=== PATIENT | female | born 1965 | race Caucasian/White ===

== ENCOUNTER 2022-02-03 08:23 | Observation (INO) ==
[2022-02-03 08:40] VITALS: BMI 20.7
[2022-02-03] MEDS ORDERED: CATAPRES PO ONE (08:58)
--- NOTE | 2022-02-03 09:10 | ED.PDOC ---
General ED Provider: Dr. BRIA RODRIGUEZ Chief Complaint: Nausea/Vomiting Stated Complaint: Nausea/Vomiting and abdominal pain. Onset for past several days. Went to ER at [facility] in October and was dx with Ulcerative Colitis/ Time Seen by Provider: 02/03/22 08:45 Mode of Arrival: Walk-In Information Source: Patient Exam Limitations: No limitations Primary Care Provider: RE OVIEDO Nursing and Triage Documentation Reviewed and Agree: Yes Does patient meet sepsis criteria?: No System Inflammatory Response Syndrome: Not Applicable Sepsis Protocol: For patient's 13 years and over: Temp is 96.8 and below OR 101 and greater Pulse >90 BPM Resp >20/minute Acutely Altered Mental Status Are patient's symptoms suggestive of a new infection, such as: -Pneumonia -Skin, Soft Tissue -Endocarditis -UTI -Bone, Joint Infection -Implantable Device -Acute Abdominal Infection -Wound Infection -Meningitis -Blood Stream Catheter Infection -Unknown GI Complaint Exam Vomiting/Diarrhea Complaint/Exam Onset/Duration: 2-3 days Episodes of Vomiting over last 24 Hours: 3 Episodes of Diarrhea Over Last 24 Hours: 2 Initial Severity: Moderate Current Severity: Mild Character of Vomiting: Reports Bilious Character of Diarrhea: Reports Watery and Mucoid Aggravating: Reports Food and Liquids Alleviating: Reports None Associated Signs and Symptoms: Reports Light-headedness and Abdominal pain Related History: Reports Similar episode Menses: Regular (PREV JOHAN) Non-GI Risk Factors: Reports None Surgical Obstruction Risk Factors: Reports Colicky abdominal pain Related Surgical History: Reports None Abdominal Findings: Absent Pulsatile mass, Abdominal distention, Unequal femoral pulses, Rebound tenderness, Peritoneal signs, [place] tender or CVA Tenderness Review of Systems Review Of Systems Constitutional: Reports Weakness Eyes: Reports No symptoms Ears, Nose, Mouth, Throat: Reports No symptoms Respiratory: Reports No symptoms and Cough Cardiac: Reports No symptoms GI: Reports Abdominal pain, Diarrhea, Nausea, Poor appetite and Poor fluid intake : Reports No symptoms Musculoskeletal: Reports No symptoms Skin: Reports No symptoms Neurological: Reports Anxiety Endocrine: Reports No symptoms All Other Systems: Reviewed and Negative Physical Exam Physical Exam Appearance: Reports Ill-appearing Ill-appearing: Mild Pain Distress: Mild Eyes: Reports JUDIE, EOMI and Conjunctiva clear ENT: Reports Ears normal, Nose normal and Oropharynx normal Neck: Nonsupple Respiratory: Reports Airway patent Cardiovascular: Reports RRR, Pulses normal, No rub and No murmur GI/: Reports Soft, Tender and Bowel sounds hyperactive; Denies Mass Musculoskeletal: Reports Normal strength Skin: Reports Warm Neurological: Reports Sensation intact, Motor intact and Reflexes intact Psychiatric: Reports Affect appropriate, Mood appropriate and Anxious Interpretation Radiology Interpretation Exam Interpreted: CT Scan (No acute abnormality in the abdomen or pelvis. Severe degenerative disc disease of L1-L2.) Critical Care Note Critical Care Note Total Critical Care Time (mins): 60 Course Course Hematology/Chemistry: 02/03/22 09:13 02/03/22 09:13 Orders, Labs, Meds: Lab Review 02/03/22 02/03/22 02/03/22 09:13 09:13 09:13 WBC 13.65 H RBC 5.12 Hgb 15.8 Hct 46.5 MCV 90.8 MCH 30.9 MCHC 34.0 RDW Coeff of [place]sten 12.9 Plt Count 377 Immature Gran % (Auto) 0.2 Neut % (Auto) 74.4 Lymph % (Auto) 19.4 [place] % (Auto) 5.8 Eos % (Auto) 0.0 Baso % (Auto) 0.2 Neut # (Auto) 10.2 H Lymph # (Auto) 2.7 [place] # (Auto) 0.8 Eos # (Auto) 0.0 Baso # (Auto) 0.0 Immature Gran # (Auto) 0.0 Sodium 132.7 L Potassium 3.43 L Chloride 93.9 L Carbon Dioxide 31.0 H Anion Gap 11.23 BUN 20.9 H Creatinine 0.89 Estimated GFR (MDRD) 66.00 BUN/Creatinine Ratio 23.48 Glucose 126.6 H Lactic Acid Calcium 9.46 Total Bilirubin 0.64 AST 30.7 ALT 17.9 Alkaline Phosphatase 122.7 Total Protein 8.50 H Albumin 5.03 H Globulin 3.47 Albumin/Globulin Ratio 1.44 Amylase 67.6 Lipase 38.9 Procalcitonin < 0.05 Urine Color Urine Clarity Urine pH Ur Specific [place] Urine Protein Urine Glucose (UA) Urine Ketones Urine Blood Urine Nitrite Urine Bilirubin Urine Urobilinogen Ur Leukocyte Esterase Urine Microscopic RBC Ur Squamous Epith Cells Urine Mucus Urine Opiates Screen Ur Oxycodone Screen Urine Methadone Screen Ur Propoxyphene Screen Ur Barbiturates Screen U Tricyclic Antidepress Ur Phencyclidine Scrn Ur Amphetamine Screen U Methamphetamines Scrn U Benzodiazepines Scrn Urine Cocaine Screen U Cannabinoids Screen 02/03/22 02/03/22 02/03/22 09:13 11:55 11:55 WBC RBC Hgb Hct MCV MCH MCHC RDW Coeff of [place] Plt Count Immature Gran % (Auto) Neut % (Auto) Lymph % (Auto) [place] % (Auto) Eos % (Auto) Baso % (Auto) Neut # (Auto) Lymph # (Auto) [place] # (Auto) Eos # (Auto) Baso # (Auto) Immature Gran # (Auto) Sodium Potassium Chloride Carbon Dioxide Anion Gap BUN Creatinine Estimated GFR (MDRD) BUN/Creatinine Ratio Glucose Lactic Acid 1.33 Calcium Total Bilirubin AST ALT Alkaline Phosphatase Total Protein Albumin Globulin Albumin/Globulin Ratio Amylase Lipase Procalcitonin Urine Color Dark Urine Clarity Slightly Urine pH 7.0 Ur Specific [place] >=1.030 Urine Protein 1+ H Urine Glucose (UA) Negative Urine Ketones 1+ H Urine Blood 2+ H Urine Nitrite Negative Urine Bilirubin 1+ H Urine Urobilinogen 0.2 Ur Leukocyte Esterase Negative Urine Microscopic RBC 10-20 Ur Squamous Epith Cells 5-10 Urine Mucus 3+ Urine Opiates Screen Negative Ur Oxycodone Screen Positive H Urine Methadone Screen Negative Ur Propoxyphene Screen Negative Ur Barbiturates Screen Negative U Tricyclic Antidepress Negative Ur Phencyclidine Scrn Negative Ur Amphetamine Screen Negative U Methamphetamines Scrn Negative U Benzodiazepines Scrn Negative Urine Cocaine Screen Negative U Cannabinoids Screen Positive H Orders Category Date Time Status ADMIT OBSERVATION [PLACE PATIENT OBSERVATION] .TO ADMISSION 02/03/22 13:43 Ordered MEDSURG (MONITORED BED) ADMIT PATIENT INPATIENT .TO MEDSURG (MONITORED BED) ADMISSION 02/03/22 13:44 Ordered ADMIT PATIENT SWING .TO MEDSURG (MONITORED BED) ADMISSION 02/03/22 13:44 Ordered ACTIVITY .BR with BRP CARE 02/03/22 13:45 Ordered BLOOD GLUCOSE MONITORING (MED/SURG) ACCUCHECK Q6H CARE 02/03/22 13:46 Ordered INTAKE & OUTPUT Q8HR CARE 02/03/22 13:44 Ordered TELEMETRY MONITORING TELE CARE 02/03/22 13:43 Ordered VITAL SIGNS Q4HR CARE 02/03/22 13:45 Ordered NOTHING BY MOUTH DIETARY 02/03/22 Lunch Ordered IV [ED IV/MEDIPORT/POWERPORT] .ONCE EMERGENCY 02/03/22 09:12 Active AMYLASE Stat LAB 02/03/22 09:13 Completed AMYLASE Stat LAB 02/03/22 13:44 Ordered CBC W/ AUTO DIFF DAILY@0600 LAB 02/04/22 06:00 Ordered CBC W/ AUTO DIFF DAILY@0600 LAB 02/05/22 06:00 Ordered CBC W/ AUTO DIFF Stat LAB 02/03/22 09:13 Completed CBC W/ AUTO DIFF Stat LAB 02/03/22 13:44 Ordered CMP [COMPREHENSIVE METABOLIC PANEL] Stat LAB 02/03/22 09:13 Completed COMPREHENSIVE METABOLIC PANEL DAILY@0600 LAB 02/04/22 06:00 Ordered COMPREHENSIVE METABOLIC PANEL DAILY@0600 LAB 02/05/22 06:00 Ordered COMPREHENSIVE METABOLIC PANEL Stat LAB 02/03/22 13:44 Ordered LACTIC ACID Stat LAB 02/03/22 09:13 Completed LIPASE Stat LAB 02/03/22 09:13 Completed LIPASE Stat LAB 02/03/22 13:44 Ordered PROCALCITONIN Stat LAB 02/03/22 09:13 Completed UA [URINALYSIS C & S IF INDICATED] Stat LAB 02/03/22 11:55 Completed URINALYSIS C & S IF INDICATED Stat LAB 02/03/22 13:44 Uncollected URINE DRUG SCREEN (RAPID FOR ED) [DRUG SCREEN, URINE, LAB 02/03/22 11:55 Completed RAPID] Stat 0.9 % Sodium Chloride [Saline Flush] MEDS 02/03/22 09:11 Active 1 syr IVF PRN PRN Acetaminophen [Tylenol] MEDS 02/03/22 13:44 Ordered 650 mg PO Q4H PRN Brimonidine Tartrate [Brimonidine Tartrate 0.2% Opth MEDS 02/03/22 14:00 Ordered Tori] 2 drop RIGHTEYE BID Clonidine HCl [Catapres] MEDS 02/03/22 08:58 Discontinued 0.1 mg PO ONCE ONE Enoxaparin Sodium [Lovenox] MEDS 02/03/22 14:00 Ordered 40 mg SUBCUT DAILY Escitalopram Oxalate [Lexapro] MEDS 02/03/22 14:00 Ordered 20 mg PO DAILY Ketorolac Tromethamine [Toradol] MEDS 02/03/22 11:49 Discontinued 30 mg IVP ONCE STA Ondansetron HCl/Pf [Zofran 4 mg/2 ml] MEDS 02/03/22 09:11 Discontinued 4 mg IVP ONCE STA Ondansetron HCl/Pf [Zofran 4 mg/2 ml] MEDS 02/03/22 13:44 Ordered 4 mg IVP Q6H PRN Promethazine HCl [Phenergan 25 mg/ml Vial] MEDS 02/03/22 11:46 Discontinued 25 mg IM ONCE STA Sodium Chloride 0.9% [Sodium Chloride] 1,000 ml MEDS 02/03/22 14:00 Ordered IV DAILY Sodium Chloride 0.9% [Sodium Chloride] 1,000 ml MEDS 02/03/22 09:12 Discontinued IV ONCE Sodium Chloride 0.9% [Sodium Chloride] 1,000 ml MEDS 02/03/22 11:52 Discontinued IV ONCE timolol maleate (PF) MEDS 02/03/22 14:00 Ordered 2 drop RIGHTEYE BID RESUSCITATION STATUS Routine OTHERS 02/03/22 13:[address] ABDOMEN/PELVIS WO CONTRAST Stat RADS 02/03/22 09:14 Completed ACTIVITIES CONSULT Routine THERAPIES 02/03/22 13:44 Ordered OT CONSULTATION Routine THERAPIES 02/03/22 Ordered PT CONSULT Routine THERAPIES 02/03/22 Ordered Medications Generic Name Dose Route Start Last Admin Trade Name Freq PRN Reason Stop Dose Admin Sodium Chloride 1 syr 02/03/22 09:11 0.9% Sodium Chloride 10 Ml Disp.Syrin IVF PRN PRN To flush IV Discontinued Medications Generic Name Dose Route Start Last Admin Trade Name Freq PRN Reason Stop Dose Admin Clonidine 0.1 mg 02/03/22 08:58 02/03/22 09:05 Clonidine Hcl 0.1 Mg Tablet PO 02/03/22 08:59 0.1 mg ONCE ONE Administration Sodium Chloride 1,000 mls @ 125 mls/hr 02/03/22 09:12 02/03/22 09:34 Sodium Chloride IV 02/03/22 17:11 125 mls/hr ONCE ONE Administration Sodium Chloride 1,000 mls @ 250 mls/hr 02/03/22 11:52 02/03/22 12:02 Sodium Chloride IV 02/03/22 13:11 Not Given ONCE ONE Ketorolac Tromethamine 30 mg 02/03/22 11:49 02/03/22 11:58 Ketorolac Tromethamine 30 Mg/Ml Vial IVP 02/03/22 11:50 30 mg ONCE STA Administration Ondansetron HCl 4 mg 02/03/22 09:11 02/03/22 09:36 Ondansetron Hcl/Pf 4 Mg/2 Ml Sdv IVP 02/03/22 09:12 4 mg ONCE STA Administration Promethazine HCl 25 mg 02/03/22 11:46 02/03/22 11:58 Promethazine Inj 25 Mg/Ml IM 02/03/22 11:47 25 mg ONCE STA Administration Vital Signs: Temp Pulse Resp BP Pulse Ox 02/03/22 08:30 97.0 F L 110 H 22 162/101 H 98 Discharge Plan Discharge Patient Disposition: PLACED OBSERVATION Discharge Problem: Gastroenteritis, Hypertension, Acute hypokalemia ED Provider: BRIA RODRIGUEZ Condition: Fair Physician Progress Note: []
[2022-02-03] MEDS ORDERED: ZOFRAN 4 MG/2 ML IVP STA (09:11)
[2022-02-03] MEDS ORDERED: SODIUM CHLORIDE 1,000 ML IV ONE ×2 (09:12→11:52)
[2022-02-03 09:30] LABS: BASOPHILS % (AUTO) 0.2 % (0.0-3.0); HEMATOCRIT 46.5 % (37.0-47.0); HEMOGLOBIN 15.8 g/dl (12.0-16.0); IMMATURE GRANULOCYTE % (AUTO) 0.2 % (0.0-5.0); LYMPHOCYTES # (AUTO) 2.7 K/uL (0.60-3.4); LYMPHOCYTES % (AUTO) 19.4 (10.0-50.0); MEAN CORPUSCULAR HEMOGLOBIN 30.9 pg (27.0-31.0); MEAN CORPUSCULAR VOLUME 90.8 fl (81.0-99.0); MONOCYTES # (AUTO) 0.8 K/uL (0.4-2.0); MONOCYTES % (AUTO) 5.8 (0-10); NEUTROPHILS # (AUTO) 10.2 K/ul (2.0-6.9); NEUTROPHILS % (AUTO) 74.4 % (42.2-75.2); PLATELET COUNT 377 10^3/uL (140-440); RDW COEFFICIENT OF VARIATION 12.9 % (11.6-14.8); RED BLOOD COUNT 5.12 10^6/ul (4.20-5.40); WHITE BLOOD COUNT 13.65 K/ul (4.6-10.2)
[2022-02-03 09:45] LABS: ALANINE AMINOTRANSFERASE 17.9 U/L (0-35); ALBUMIN 5.03 g/dL (3.5-5.0); ALKALINE PHOSPHATASE 122.7 U/L (38-126); AMYLASE 67.6 U/L (30-110); ASPARTATE AMINO TRANSFERASE 30.7 U/L (14-36); BILIRUBIN,TOTAL 0.64 mg/dL (0.2-1.3); BLOOD UREA NITROGEN 20.9 mg/dL (7-17); CALCIUM 9.46 mg/dL (8.4-10.2); CHLORIDE 93.9 mmol/L (98-107); CREATININE 0.89 mg/dL (0.60-1.30); GLUCOSE 126.6 mg/dL (74-106); LIPASE 38.9 U/L (23-300); POTASSIUM 3.43 mmol/L (3.5-5.1); SODIUM 132.7 mmol/L (134.5-145); TOTAL PROTEIN 8.5 g/dL (6.3-8.2)
--- NOTE | 2022-02-03 10:07 | CT ---
EXAM: CT ABDOMEN AND PELVIS WITHOUT CONTRAST HISTORY: Abdominal pain. TECHNIQUE: CT acquisition of the abdomen and pelvis from the lower thorax through the pelvis without IV contrast administration. IV contrast: None. Oral contrast: None. Low dose protocol: No. CT Dose Reduction Techniques Performed: Yes. COMPARISON: None. FINDINGS: Liver: Sub-centimeter hypodense lesion in the left hepatic lobe which is too small to characterize, h owever likely benign. Biliary: No biliary ductal dilation. Possible gallbladder sludge. No gallbladder wall thickening. Pancreas: No duct dilation. No mass. Spleen: No mass. No splenomegaly. Adrenals: No mass. Kidneys/Ureters: 1.8 cm left renal cyst. No calculus. No hydronephrosis. GI Tract: No bowel dilation. No bowel wall thickening. Peritoneal Cavity: No ascites. Retroperitoneum: No fluid collection. Lymph Nodes: No lymphadenopathy. Vasculature: No aortic calcifications. No aortic or iliac aneurysm within limitations of noncontrast examination. Pelvis: No free fluid. Bladder is normal. Bones/Soft Tissues: Severe degenerative disc disease of L1-L2 with endplate sclerosis. No fracture. Visualized soft tissues are within normal limits. Lower Thorax: Within normal limits. IMPRESSION: No acute abnormality in the abdomen or pelvis. Severe degenerative disc disease of L1-L2. All CT scans are performed using dose optimization techniques as appropriate to the performed exam an d include at least one of the following: Automated exposure control, adjustment of the mA and/or kV according t o size, and the use of iterative reconstruction technique.
[2022-02-03] MEDS ORDERED: K-DUR PO STA (11:35)
[2022-02-03] MEDS ORDERED: PHENERGAN 25 MG/ML VIAL IM STA (11:46)
[2022-02-03] MEDS ORDERED: TORADOL IVP STA (11:49)
[2022-02-03 12:12] LABS: BILIRUBIN,URINE 1+ (NEGATIVE); CLARITY,URINE Slightly (CLEAR); COLOR,URINE Dark (YELLOW); GLUCOSE, URINE (UA) Negative (NEGATIVE); KETONES,URINE 1+ (NEGATIVE); LEUKOCYTE ESTERASE ,URINE Negative (NEGATIVE); NITRITE,URINE Negative (NEGATIVE); PROTEIN,URINE 1+ (NEGATIVE); URINE, BLOOD 2+ (NEGATIVE); UROBILINOGEN,URINE 0.2 (0.2)
[2022-02-03 12:20] LABS: CANNABINOID SCREEN,URINE POSITIVE (NEGATIVE)
[2022-02-03 12:21] LABS: AMPHETAMINE SCREEN,URINE NEGATIVE (NEGATIVE); BARBITURATE SCREEN,URINE NEGATIVE (NEGATIVE); BENZODIAZEPINES SCREEN,URINE NEGATIVE (NEGATIVE); COCAIN SCREEN,URINE NEGATIVE (NEGATIVE); METHADONE URINE SCREEN NEGATIVE (NEGATIVE); METHAMPHETAMINES SCREEN,URINE NEGATIVE (NEGATIVE); OPIATE SCREEN,URINE NEGATIVE (NEGATIVE); OXYCODONE URINE SCREEN POSITIVE (NEGATIVE); PHENCYCLIDINE SCREEN,URINE NEGATIVE (NEGATIVE); PROPOXYPHENE URINE SCREEN NEGATIVE (NEGATIVE); TRICYCLIC ANTIDEPRESSANTS URIN NEGATIVE (NEGATIVE)
[2022-02-03 12:28] LABS: MUCUS,URINE 3+ (NOT PRESENT)
[2022-02-03 13:09] LABS: BORDETELLA PARAPERTUSSIS (PCR) NOT DETECTED (NOT DETECT); BORDETELLA PERTUSSIS (PCR) NOT DETECTED (NOT DETECT); CHLAMYDIA PNEUMONIAE (PCR) NOT DETECTED (NOT DETECT); CORONAVIRUS 229E (PCR) NOT DETECTED (NOT DETECT); CORONAVIRUS HKU1 (PCR) NOT DETECTED (NOT DETECT); CORONAVIRUS NL63 (PCR) NOT DETECTED (NOT DETECT); CORONAVIRUS OC43 (PCR) NOT DETECTED (NOT DETECT); HUMAN METAPNEUMOVIRUS (PCR) NOT DETECTED (NOT DETECT); HUMAN RHINOVIRUS/ENTEROV (PCR) NOT DETECTED (NOT DETECT); INFLUENZA B (PCR) NOT DETECTED (NOT DETECT); MYCOPLASMA PNEUMONIAE (PCR) NOT DETECTED (NOT DETECT); PARAINFLUENZA VIRUS 1 (PCR) NOT DETECTED (NOT DETECT); PARAINFLUENZA VIRUS 2 (PCR) NOT DETECTED (NOT DETECT); PARAINFLUENZA VIRUS 3 (PCR) NOT DETECTED (NOT DETECT); PARAINFLUENZA VIRUS 4 (PCR) NOT DETECTED (NOT DETECT); RESPIRATORY SYNCYTIAL V (PCR) NOT DETECTED (NOT DETECT); SARS_COV_2 (PCR) NOT DETECTED (NOT DETECT)
[2022-02-03] MEDS ORDERED: TIMOLOL MALEATE 0.5% RIGHTEYE SCH (14:00)
[2022-02-03] MEDS ORDERED: SODIUM CHLORIDE 1,000 ML IV SCH (14:00)
[2022-02-03 14:03] LABS: ADENOVIRUS (PCR) NOT DETECTED (NOT DETECT)
[2022-02-03 14:03] LABS: BASOPHILS % (AUTO) 0.2 % (0.0-3.0); EOSINOPHILS % (AUTO) 0.1 % (0.0-7.0); HEMATOCRIT 40.8 % (37.0-47.0); IMMATURE GRANULOCYTE % (AUTO) 0.3 % (0.0-5.0); LYMPHOCYTES # (AUTO) 3.4 K/uL (0.60-3.4); LYMPHOCYTES % (AUTO) 27.2 (10.0-50.0); MEAN CORPUSCULAR HEMOGLOBIN 31.1 pg (27.0-31.0); MEAN CORPUSCULAR HGB CONC 34.3 (31.8-35.4); MEAN CORPUSCULAR VOLUME 90.7 fl (81.0-99.0); MONOCYTES # (AUTO) 0.8 K/uL (0.4-2.0); MONOCYTES % (AUTO) 6.5 (0-10); NEUTROPHILS # (AUTO) 8.3 K/ul (2.0-6.9); NEUTROPHILS % (AUTO) 65.7 % (42.2-75.2); PLATELET COUNT 316 10^3/uL (140-440); RDW COEFFICIENT OF VARIATION 12.7 % (11.6-14.8); WHITE BLOOD COUNT 12.62 K/ul (4.6-10.2)
[2022-02-03 14:18] LABS: ALANINE AMINOTRANSFERASE 14.7 U/L (0-35); ALBUMIN 4.29 g/dL (3.5-5.0); ALKALINE PHOSPHATASE 87.2 U/L (38-126); AMYLASE 72.3 U/L (30-110); ASPARTATE AMINO TRANSFERASE 26.1 U/L (14-36); BILIRUBIN,TOTAL 0.52 mg/dL (0.2-1.3); BLOOD UREA NITROGEN 19.9 mg/dL (7-17); CALCIUM 8.62 mg/dL (8.4-10.2); CARBON DIOXIDE 26.7 mmol/L (22-30.0); CHLORIDE 99.9 mmol/L (98-107); CREATININE 0.73 mg/dL (0.60-1.30); GLUCOSE 102.3 mg/dL (74-106); LIPASE 170.2 U/L (23-300); POTASSIUM 3.34 mmol/L (3.5-5.1); SODIUM 132.5 mmol/L (134.5-145); TOTAL PROTEIN 7.02 g/dL (6.3-8.2)
[2022-02-03] MEDS: ZOFRAN 4 MG/2 ML IVP PRN ×2 (15:03→21:02)
[2022-02-03] MEDS: BRIMONIDINE TARTRATE 0.2% OPTH SOL RIGHTEYE SCH ×2 (15:14→20:41)
[2022-02-03] MEDS: LEXAPRO PO SCH (15:14)
[2022-02-03] MEDS: LOVENOX SUBCUT SCH (15:14)
[2022-02-03] MEDS: TORADOL IVP PRN ×2 (16:41→23:24)
[2022-02-03] MEDS: TIMOPTIC 0.5% OPTH RIGHTEYE SCH (20:41)
[2022-02-03] MEDS: XALATAN RIGHTEYE SCH (20:41)
[2022-02-03] MEDS: SODIUM CHLORIDE 1,000 ML IV SCH (23:32)
[2022-02-04] MEDS: ZOFRAN 4 MG/2 ML IVP PRN ×4 (03:13→17:42)
[2022-02-04 05:26] LABS: BASOPHILS % (AUTO) 0.3 % (0.0-3.0); EOSINOPHILS # (AUTO) 0.1 K/ul (0.0-0.7); EOSINOPHILS % (AUTO) 0.5 % (0.0-7.0); HEMATOCRIT 43.1 % (37.0-47.0); HEMOGLOBIN 14.4 g/dl (12.0-16.0); IMMATURE GRANULOCYTE # (AUTO) 0.1 (0.0-1.0); IMMATURE GRANULOCYTE % (AUTO) 0.4 % (0.0-5.0); LYMPHOCYTES % (AUTO) 24.6 (10.0-50.0); MEAN CORPUSCULAR HGB CONC 33.4 (31.8-35.4); MEAN CORPUSCULAR VOLUME 92.7 fl (81.0-99.0); MONOCYTES # (AUTO) 0.7 K/uL (0.4-2.0); MONOCYTES % (AUTO) 6.1 (0-10); NEUTROPHILS # (AUTO) 8.2 K/ul (2.0-6.9); NEUTROPHILS % (AUTO) 68.1 % (42.2-75.2); PLATELET COUNT 321 10^3/uL (140-440); RED BLOOD COUNT 4.65 10^6/ul (4.20-5.40); WHITE BLOOD COUNT 12.11 K/ul (4.6-10.2)
[2022-02-04 05:41] LABS: ALANINE AMINOTRANSFERASE 16.2 U/L (0-35); ALBUMIN 4.52 g/dL (3.5-5.0); ALKALINE PHOSPHATASE 89.9 U/L (38-126); ASPARTATE AMINO TRANSFERASE 27.7 U/L (14-36); BILIRUBIN,TOTAL 0.62 mg/dL (0.2-1.3); BLOOD UREA NITROGEN 17.7 mg/dL (7-17); CALCIUM 8.85 mg/dL (8.4-10.2); CARBON DIOXIDE 25.6 mmol/L (22-30.0); CREATININE 0.8 mg/dL (0.60-1.30); GLUCOSE 95.3 mg/dL (74-106); POTASSIUM 3.34 mmol/L (3.5-5.1); SODIUM 136.5 mmol/L (134.5-145); TOTAL PROTEIN 7.27 g/dL (6.3-8.2)
[2022-02-04] MEDS: TORADOL IVP PRN ×3 (06:19→21:25)
[2022-02-04] MEDS: LEXAPRO PO SCH (08:48)
[2022-02-04] MEDS: TIMOPTIC 0.5% OPTH RIGHTEYE SCH ×2 (08:49→20:57)
[2022-02-04] MEDS: BRIMONIDINE TARTRATE 0.2% OPTH SOL RIGHTEYE SCH ×2 (08:49→20:57)
[2022-02-04] MEDS: LOVENOX SUBCUT SCH (08:50)
[2022-02-04] MEDS: SODIUM CHLORIDE 1,000 ML IV SCH (09:17)
--- NOTE | 2022-02-04 10:29 | PCM.PROG ---
Date Seen by Provider: 02/04/22 Time Seen by Provider: 10:26 Subjective: Less abdominal distress. Stil with some abd pain. Objective: Vitals: T=98.8 F, P=76, R=22, UP=526/83, SPO2=98 Appears to be mildly acutely ill. HEENT: [] Neck: [] Lungs: [] CVS: [] Abdomen: []Soft, nontender, nondistended. Active BS. Extremities: [] Neurological: [] Skin: [] Lab/Tests/Diagnostic Imaging: [] (1) Gastroenteritis: Status: Acute Code(s): K52.9 - Noninfective gastroenteritis and colitis, unspecified SNOMED Code(s): 13326650 Assessment: Symptoms improving. (2) Hypertension: Status: Acute Code(s): I10 - Essential (primary) hypertension SNOMED Code(s): 36517304 (3) Acute hypokalemia: Status: Acute Code(s): E87.6 - Hypokalemia SNOMED Code(s): 96198754 Plan: Advance diet and lock IV fluids. BP well controlled. Replete potassium.
[2022-02-04] MEDS: K-DUR PO SCH ×2 (11:20→20:58)
[2022-02-04] MEDS: TYLENOL PO PRN (12:48)
[2022-02-04] MEDS ORDERED: PROTONIX IV IVP ONE (14:25)
[2022-02-04] MEDS ORDERED: GI COCKTAIL PO ONE (14:26)
[2022-02-04] MEDS ORDERED: VASOTEC IV IVP PRN (18:02)
[2022-02-04] MEDS: COMPAZINE IVP PRN (18:16)
[2022-02-04] MEDS: XALATAN RIGHTEYE SCH (20:57)
[2022-02-05] MEDS ORDERED: CATAPRES PO ONE (00:08)
[2022-02-05] MEDS: COMPAZINE IVP PRN ×3 (01:10→23:25)
[2022-02-05] MEDS: TORADOL IVP PRN (04:04)
[2022-02-05 06:05] LABS: BASOPHILS % (AUTO) 0.2 % (0.0-3.0); EOSINOPHILS % (AUTO) 0.2 % (0.0-7.0); HEMATOCRIT 44.3 % (37.0-47.0); HEMOGLOBIN 15.3 g/dl (12.0-16.0); IMMATURE GRANULOCYTE % (AUTO) 0.3 % (0.0-5.0); LYMPHOCYTES # (AUTO) 2.5 K/uL (0.60-3.4); LYMPHOCYTES % (AUTO) 20.9 (10.0-50.0); MEAN CORPUSCULAR HGB CONC 34.5 (31.8-35.4); MEAN CORPUSCULAR VOLUME 89.7 fl (81.0-99.0); MONOCYTES # (AUTO) 0.9 K/uL (0.4-2.0); MONOCYTES % (AUTO) 7.8 (0-10); NEUTROPHILS # (AUTO) 8.5 K/ul (2.0-6.9); NEUTROPHILS % (AUTO) 70.6 % (42.2-75.2); PLATELET COUNT 319 10^3/uL (140-440); RDW COEFFICIENT OF VARIATION 12.4 % (11.6-14.8); RED BLOOD COUNT 4.94 10^6/ul (4.20-5.40); WHITE BLOOD COUNT 11.96 K/ul (4.6-10.2)
[2022-02-05 06:18] LABS: ALANINE AMINOTRANSFERASE 17.8 U/L (0-35); ALBUMIN 4.52 g/dL (3.5-5.0); ALKALINE PHOSPHATASE 83.3 U/L (38-126); ASPARTATE AMINO TRANSFERASE 27.9 U/L (14-36); BILIRUBIN,TOTAL 0.6 mg/dL (0.2-1.3); BLOOD UREA NITROGEN 10.4 mg/dL (7-17); CALCIUM 9.41 mg/dL (8.4-10.2); CARBON DIOXIDE 26.3 mmol/L (22-30.0); CHLORIDE 97.8 mmol/L (98-107); CREATININE 0.68 mg/dL (0.60-1.30); GLUCOSE 183.7 mg/dL (74-106); POTASSIUM 2.81 mmol/L (3.5-5.1); TOTAL PROTEIN 7.5 g/dL (6.3-8.2)
[2022-02-05] MEDS: LEXAPRO PO SCH (08:44)
[2022-02-05] MEDS: K-DUR PO SCH ×3 (08:45→16:45)
[2022-02-05] MEDS: LOVENOX SUBCUT SCH (08:46)
[2022-02-05] MEDS: BRIMONIDINE TARTRATE 0.2% OPTH SOL RIGHTEYE SCH ×2 (08:49→21:06)
[2022-02-05] MEDS: TIMOPTIC 0.5% OPTH RIGHTEYE SCH ×2 (08:49→21:05)
[2022-02-05] MEDS: ZOFRAN 4 MG/2 ML IVP PRN ×2 (08:50→14:42)
[2022-02-05] MEDS: TYLENOL PO PRN (10:18)
[2022-02-05] MEDS ORDERED: PROTONIX IV IVP SCH (10:25)
[2022-02-05] MEDS ORDERED: POTASSIUM CHLORIDE 10 MEQ VIAL- ADDITIVE ONLY 10 MEQ in SODIUM CHLORIDE 1,000 ML IV SCH (10:30)
--- NOTE | 2022-02-05 10:42 | PCM.PROG ---
Date Seen by Provider: 02/05/22 Time Seen by Provider: 10:39 Subjective: pt improved abdominal pain and NVD since admission 02/03/22 Objective: Vitals: T=97.2 F, P=99, R=16, XC=641/65, SPO2=97 HEENT: []conjunctiva clear Neck: []supple Lungs: [] no respiratory distress CVS: []RRR Abdomen: []nondistended Extremities: []nikki Neurological: []alert and oriented Skin: []pink, no cyanosis Lab/Tests/Diagnostic Imaging: []K+ 2.8 today (1) Gastroenteritis: Status: Acute Code(s): K52.9 - Noninfective gastroenteritis and colitis, unspecified SNOMED Code(s): 97224136 (2) Hypertension: Status: Acute Code(s): I10 - Essential (primary) hypertension SNOMED Code(s): 33185904 (3) Acute hypokalemia: Status: Acute Code(s): E87.6 - Hypokalemia SNOMED Code(s): 55539263 Assessment: stable Plan: add protonix 40 qday, iv 1/2ns w/ 10meq KCL at 75cc/hr, am labs care to Dr Aponte at 19:00
[2022-02-05] MEDS: POTASSIUM CHLORIDE 10 MEQ VIAL- ADDITIVE ONLY 10 MEQ in SODIUM CHLORIDE 1,000 ML IV SCH (11:06)
[2022-02-05] MEDS: XALATAN RIGHTEYE SCH (21:07)
[2022-02-06] MEDS ORDERED: POTASSIUM CHLORIDE 10 MEQ VIAL- ADDITIVE ONLY IV ONE (01:55)
[2022-02-06] MEDS: POTASSIUM CHLORIDE 10 MEQ VIAL- ADDITIVE ONLY 10 MEQ in SODIUM CHLORIDE 1,000 ML IV SCH (02:02)
[2022-02-06] MEDS: ZOFRAN 4 MG/2 ML IVP PRN (03:16)
[2022-02-06 05:20] VITALS: BP 111/69; TEMP 98.3
[2022-02-06 05:24] LABS: BASOPHILS % (AUTO) 0.4 % (0.0-3.0); EOSINOPHILS # (AUTO) 0.1 K/ul (0.0-0.7); EOSINOPHILS % (AUTO) 0.7 % (0.0-7.0); HEMATOCRIT 41.2 % (37.0-47.0); IMMATURE GRANULOCYTE % (AUTO) 0.3 % (0.0-5.0); LYMPHOCYTES % (AUTO) 32.1 (10.0-50.0); MEAN CORPUSCULAR HEMOGLOBIN 30.9 pg (27.0-31.0); MEAN CORPUSCULAR VOLUME 90.9 fl (81.0-99.0); MONOCYTES # (AUTO) 0.7 K/uL (0.4-2.0); MONOCYTES % (AUTO) 7.9 (0-10); NEUTROPHILS # (AUTO) 5.5 K/ul (2.0-6.9); NEUTROPHILS % (AUTO) 58.6 % (42.2-75.2); PLATELET COUNT 305 10^3/uL (140-440); RDW COEFFICIENT OF VARIATION 12.8 % (11.6-14.8); RED BLOOD COUNT 4.53 10^6/ul (4.20-5.40); WHITE BLOOD COUNT 9.38 K/ul (4.6-10.2)
[2022-02-06 05:39] LABS: BLOOD UREA NITROGEN 11.9 mg/dL (7-17); CALCIUM 8.97 mg/dL (8.4-10.2); CARBON DIOXIDE 24.9 mmol/L (22-30.0); CHLORIDE 104.4 mmol/L (98-107); CREATININE 0.85 mg/dL (0.60-1.30); GLUCOSE 103.5 mg/dL (74-106); POTASSIUM 3.95 mmol/L (3.5-5.1); SODIUM 134.9 mmol/L (134.5-145)
--- NOTE | 2022-02-06 07:45 | PCM.DC ---
Final Diagnosis: Gastroenteritis Hypokalemia Physical Exam Appearance: Well-appearing Ill-appearing: None Pain Distress: None Eyes: JUDIE, EOMI and Conjunctiva clear ENT: Ears normal, Nose normal and Oropharynx normal Neck: Supple Respiratory: Airway patent, Breath sounds clear, Breath sounds equal and Respirations nonlabored Cardiovascular: RRR, Pulses normal, No rub and No murmur GI/: Soft, No masses, Bowel sounds normal, No Organomegaly and Tender (Minimal diffuse TTP much improved per patient. No focal RUQ or RLQ pain) Musculoskeletal: Normal strength, ROM intact, No edema and No calf tenderness Skin: Warm, Dry and Normal color Neurological: Sensation intact, Motor intact, Reflexes intact, Cranial nerves intact, Alert and Oriented Psychiatric: Affect appropriate and Mood appropriate (1) Gastroenteritis: Status: Acute Code(s): K52.9 - Noninfective gastroenteritis and colitis, unspecified SNOMED Code(s): 77037050 (2) Hypertension: Status: Acute Code(s): I10 - Essential (primary) hypertension SNOMED Code(s): 87632919 (3) Acute hypokalemia: Status: Acute Code(s): E87.6 - Hypokalemia SNOMED Code(s): 90861856 Reason for Hospitalization: N/V/D and hypokalemia Prognosis/Condition at Discharge: Improved and stable Medications at Discharge: Ambulatory Orders Medication Instructions Recorded brimonidine 0.2 % eye drops 2 drp RIGHTEYE BID 02/03/22 escitalopram oxalate 20 mg tablet 20 mg PO DAILY 02/03/22 (Lexapro) latanoprost 0.005 % eye drops 1 drp RIGHTEYE BEDTIME 02/03/22 timolol maleate (PF) 0.5 % eye 2 drp RIGHTEYE BID 02/03/22 drops in a dropperette Lab/Diagnostics: Labs at D/C were normal with a much improved K+ Education Provided to Patient and Family: Education on medications Follow-ups: Follow-up with your primary care physician early next week in 3-4 days. Return if your symptoms recur or worsen. Discharge Disposition: Home Hospital Course: Pt was admitted. Treated with fluids, anti-emetics and fluids. He sxs improved and she was able to tolerate food and fluids. Plan: 1. Gastroenteritis: Prescribe Zofran and Compazine which she has used here effectively. 2. Hypokalemia: Will prescribe K-dur for 1 week and have her follow up with her PCP
[2022-02-06] MEDS: COMPAZINE IVP PRN (08:06)
[2022-02-06] MEDS: K-DUR PO SCH (08:35)
[2022-02-06] MEDS: LEXAPRO PO SCH (08:35)
[2022-02-06] MEDS: TIMOPTIC 0.5% OPTH RIGHTEYE SCH (08:36)
[2022-02-06] MEDS: BRIMONIDINE TARTRATE 0.2% OPTH SOL RIGHTEYE SCH (08:36)
[2022-02-06] MEDS: LOVENOX SUBCUT SCH (08:36)
== END 2022-02-06 08:55 | disposition home or self-care (01) ==
LOC: ED 08:39 → INTOOBSV 14:18 → MEDSURG A 14:18
PROVIDERS: ADMIT Emergency Medicine; ATTEND Emergency Medicine
DX: I10 Essential (primary) hypertension; K52.9 Noninfective gastroenteritis and colitis, unspecified; Z20.822 Contact with and (suspected) exposure to COVID-19; Z51.81 Encounter for therapeutic drug level monitoring; Z79.899 Other long term (current) drug therapy; E87.6 Hypokalemia